=== PATIENT | male | born 1955 | race Caucasian/White ===

== ENCOUNTER 2022-05-17 17:29 | Inpatient (IN) | payer BC, MEDICARE ==
[~2022-05-17] VITALS: Ht 177.8 cm; Wt 95.3 kg
--- NOTE | 2022-05-17 17:49 | NUR ---
Dr Odonnell at the [facility] for MSE.
[2022-05-17] MEDS ORDERED: ALBUTEROL SULFATE 2.5 MG/3 ML NEBU NEB ONE ×2 (17:57→18:00)
[2022-05-17] MEDS ORDERED: MAGNESIUM SULFATE 2 GM in IV DEXTROSE 5% 100 ML IV ONE (18:00)
[2022-05-17] MEDS ORDERED: methylPREDNISolone SOD SUCC 125 MG/2 ML VIAL IV ONE (18:00)
[2022-05-17] MEDS ORDERED: IPRATROPIUM BROMIDE 0.5 MG/2.5 ML NEBU NEB ONE (18:00)
[2022-05-17] MEDS ORDERED: ALBUTEROL SULFATE 2.5 MG/ 0.5 ML NEBU ONE (18:05)
[2022-05-17] MEDS ORDERED: ALBUTEROL SULFATE 2.5 MG/3 ML NEBU ONE (18:06)
[2022-05-17] MEDS ORDERED: IPRATROPIUM BROMIDE 0.5 MG/2.5 ML NEBU ONE (18:06)
--- NOTE | 2022-05-17 18:09 | NUR ---
Boom Stick Worker assumes care: 1st contact with patient: AOx4, +mild respiratory distress, +audible wheezes and frequent congestive cough heard with thin brownish secretions expectorated, afebrile, skin warm and dry, denies nausea, pleuritic chest pains=1/10 pain scale. Patient consents to possible inpatient admission.
[2022-05-17] MEDS ORDERED: MAGNESIUM SULFATE 1 GM/2 ML VIAL ONE (18:10)
[2022-05-17] MEDS ORDERED: methylPREDNISolone SOD SUCC 125 MG/2 ML VIAL ONE (18:11)
[2022-05-17] MEDS ORDERED: ALBUTEROL SULFATE 8 GM HFA.AER.AD IH ONE (18:17)
[2022-05-17] MEDS ORDERED: IPRATROPIUM BROMIDE 12.9 GM INHALER INH SCH (18:30)
[2022-05-17 18:34] LABS: HEMATOCRIT 44.1 % (36.7-47.1); MEAN CORPUSCULAR HEMOGLOBIN 29.7 uug (23.8-33.4); MEAN CORPUSCULAR VOLUME 89.9 fL (73.0-96.2); PLATELET COUNT (AUTO) 349 K/uL (152-348)
[2022-05-17 18:44] LABS: CARBON DIOXIDE 26 mmol/L (21-32); CHLORIDE 106 mmol/L (98-107); GLUCOSE 107 mg/dL (74-106); POTASSIUM 3.9 mmol/L (3.5-5.1); UREA NITROGEN, BLOOD 14 mg/dL (7-18)
--- NOTE | 2022-05-17 18:47 | NUR ---
"Plan to admit" per Dr Odonnell. ER registration/admitting staff Denys notified.
[2022-05-17 18:56] LABS: ALANINE AMINOTRANSFERASE 29 U/L (16-63); ALKALINE PHOSPHATASE 67 U/L (50-136); ASPARTATE AMINOTRANSFERASE 25 U/L (15-37); BILIRUBIN,DIRECT 0.1 mg/dL (0.0-0.2); BILIRUBIN,TOTAL 0.3 mg/dL (0.2-1.0); TOTAL PROTEIN, SERUM 8.3 g/dL (6.4-8.2)
--- NOTE | 2022-05-17 19:13 | NUR ---
Isolation maintained in ER room 3. Urinal, extra box of tissues & longer nasal cannula were provided for comfort. Patient is aware re: plan of care. No questions at this time. Gurney in high marshall's position with pillow was done. Patient prefers to sit at this time.
--- NOTE | 2022-05-17 19:24 | NUR ---
Nursing SBAR given to 7pm ER hemodialysis charge nurse Adrian.
--- NOTE | 2022-05-17 20:31 | NUR ---
Patient in rooma laying on gurny with no distress noted.
[2022-05-17] MEDS: ALBUTEROL SULFATE 8 GM HFA.AER.AD IH SCH (21:55)
[2022-05-17] MEDS ORDERED: MAGNESIUM HYDROXIDE 30 ML LIQUID UDC PO PRN (22:30)
[2022-05-17] MEDS ORDERED: ONDANSETRON 4 MG/2 ML VIAL IV PRN (22:30)
[2022-05-17] MEDS ORDERED: REMEDY ESSENTIAL ZINC PASTE 113 GM TP PRN (22:30)
[2022-05-17] MEDS ORDERED: HYDROCODONE/APAP 5-325MG TABLET PO PRN (22:30)
[2022-05-17] MEDS ORDERED: ACETAMINOPHEN 325 MG TABLET PO PRN (22:30)
--- NOTE | 2022-05-17 22:39 | NUR ---
Transfered patient to 3rd floor Tele via wheelchair.
[2022-05-17] MEDS ORDERED: levoFLOXacin 750MG/D5W 150 ML IV ONE (23:37)
[2022-05-18] MEDS: levoFLOXacin 750MG/D5W 750 MG in PREMIXED 1 EACH IV SCH ×2 (00:16→20:44)
[2022-05-18] MEDS: methylPREDNISolone SOD SUCC 40 MG/ML VIAL IV SCH ×4 (00:16→23:02)
[2022-05-18] MEDS: ENOXAPARIN SODIUM 40 MG/0.4 ML DISP.SYRIN SQ SCH ×2 (00:17→20:45)
--- NOTE | 2022-05-18 02:30 | NUR ---
Received pt via esau assisted by RN. 66 yrs old male diagnosed with Asthmatic Bronchitis. AAOx4. Noted SOB on exertion. On 2LPM sating at 97%. Has productive cough with brown moderate sputum. Able to ambulate. IV on R AC 20 g intact and patent. Complaints of chronic low back pain from spinal fusion years ago. Administered [place] as ordered. Routine admission done. Oriented pt to room. All needs attended. Call light within reach. Left bed in lowest position. Safety precautions observed.
[2022-05-18] MEDS: ALBUTEROL SULFATE 8 GM HFA.AER.AD IH SCH (04:30)
[2022-05-18] MEDS: PANTOPRAZOLE SODIUM 40 MG TABLET.DR PO SCH (06:00)
[2022-05-18 06:48] LABS: THYROID STIMULATING HORMONE 0.285 mIU/mL (0.358-3.740)
[2022-05-18 06:50] LABS: CREATININE 0.9 mg/dL (0.6-1.3); MAGNESIUM 2.1 mg/dL (1.8-2.4); PHOSPHOROUS 2.9 mg/dL (2.5-4.9)
[2022-05-18 06:53] LABS: HEMATOCRIT 39.2 % (36.7-47.1); MEAN CORPUSCULAR HEMOGLOBIN 30.2 uug (23.8-33.4); MEAN CORPUSCULAR VOLUME 89.1 fL (73.0-96.2); PLATELET COUNT (AUTO) 318 K/uL (152-348)
[2022-05-18 08:23] VITALS: BP 140/98
[2022-05-18 12:00] VITALS: BP 135/97
[2022-05-18 16:00] VITALS: BP 139/82
--- NOTE | 2022-05-18 18:47 | NUR ---
SHIFT NOTE. PT AOX3-4. SOB ON EXERTION NOTED. COMPLAIN OF PAIN WHEN COUGHING, OFFER PAIN RELIEVER BUT PT REFUSED. PT STILL ON 2L NC SATURATING 96%. AMBULATORY. SAFETY MEASURE MAINTAINED. CALL LIGHT ON BEDSIDE. WILL ENDORSED TO NOC SHIFT.
[2022-05-18 20:00] VITALS: BP 142/90
[2022-05-18] MEDS ORDERED: ATORVASTATIN 10 MG TABLET PO SCH (21:00)
[2022-05-18] MEDS ORDERED: MORPHINE SULFATE 4 MG/1 ML DISP.SYRIN IV PRN (22:30)
[2022-05-18] MEDS ORDERED: HYDROCODONE/APAP 5-325MG TABLET PO PRN ×2 (22:30→22:45)
[2022-05-18] MEDS: GUAIFENESIN/DEXTROMETHORPHAN 5 ML UDC PO PRN (23:02)
[2022-05-18] MEDS: BENZOCAINE/MENTH/CETYLPYRD LOZENGE MM PRN (23:02)
--- NOTE | 2022-05-18 23:30 | NUR ---
Pt has been coughing a lot with white to brown sputum. Complained of sore throat form too much coughing. Administered Robitussin and Cepacol as ordered. No SOB noted. On O2 2LPM saturating at 92%. Increased O2 to 4LPM, now saturating at 97%. Pt stated that he's more comfortable now. Will continue to monitor.
[2022-05-19] VITALS: BP 128/89
[2022-05-19] MEDS: IPRATROPIUM BROMIDE 0.5 MG/2.5 ML NEBU NEB PRN ×2 (00:17→07:22)
[2022-05-19] MEDS: ALBUTEROL SULFATE 2.5 MG/3 ML NEBU NEB PRN ×2 (00:24→07:22)
[2022-05-19 04:00] VITALS: BP 147/94
[2022-05-19] MEDS: methylPREDNISolone SOD SUCC 40 MG/ML VIAL IV SCH ×2 (05:25→13:26)
[2022-05-19] MEDS: PANTOPRAZOLE SODIUM 40 MG TABLET.DR PO SCH (06:10)
[2022-05-19] MEDS: GUAIFENESIN/DEXTROMETHORPHAN 5 ML UDC PO PRN (07:07)
[2022-05-19] MEDS: BENZOCAINE/MENTH/CETYLPYRD LOZENGE MM PRN (08:50)
--- NOTE | 2022-05-19 12:05 | NUR ---
CLEARED PT FOR DISCHARGE.
--- NOTE | 2022-05-19 14:20 | NUR ---
PT IS OFF O2. PT AMBULATED 2 LAPS ON THE UNIT. DENIES ANY SOB OR PAIN SATURATING AT 94-95%. MD MADE AWARE. NO HOME O2 NEEDED PER MD. WILL DISCHARGE PT TO HOME.
--- NOTE | 2022-05-19 14:59 | NUR ---
PT IS DISCHARGE. PT IS ORIENTED TO HIS ABILITY. AMBULATORY. NO COMPLAIN OF SOB. PT VITALS WNL. PT IS GOING HOME. PT WILL DRIVE BY HIS OWN. ALL BELONGINGS ACCOUNTED FOR. IV ACCESS REMOVED. PT IS ACCOMPANIED BY PARAMEDIC GOING TO HIS CAR.
== END 2022-05-19 15:05 | disposition home or self-care (01) | DRG 203 ==
LOC: ER 17:29 → TELE3 22:00
DX: J45.901 Unspecified asthma with (acute) exacerbation (principal); E78.5 Hyperlipidemia, unspecified; I10 Essential (primary) hypertension; Z87.891 Personal history of nicotine dependence; Z98.1 Arthrodesis status
CPT/HCPCS: 36415; 71045; 83735; 84100; 84443; 84481; 84484; 85025; 93005; 93307; 94640; A4663; G0378; J1650; J1956; J2920; J2930; J3475; J3535; J3590